=== PATIENT | female | born 1955 | race Caucasian/White ===

== ENCOUNTER → 2023-09-22 14:20 | Outpatient (REF) | payer MEDICARE, OTHER, SELFPAY | LOC: HWRAD 14:20 | PROVIDERS: ATTENDING PHYSICIAN Family Medicine | DX: Z12.31 Encounter for screening mammogram for malignant neoplasm of breast (principal); Z78.0 Asymptomatic menopausal state | CPT/HCPCS: 77063; 77067; 77080 ==

== ENCOUNTER 2024-09-22 13:03 | Emergency (ER) | payer MEDICARE, OTHER, SELFPAY ==
[2024-09-22 13:12] VITALS: BP 120/102
[2024-09-22 13:26] VITALS: BMI 35.6
--- NOTE | 2024-09-22 13:28 | ED.GENMED ---
History of Present Illness
General
Chief Complaint: Heart Rate Problem
Source: patient
Time Seen by Provider: 09/22/24 13:14
History of Present Illness
History of Present Illness:
69-year-old female presents to the emergency room complaining of rapid heart rate. She has a known history of SVT. She felt like her heart was racing this morning so she took an extra dose of her metoprolol. She was not feeling any relief and so
her brought her to the emergency room. She has a mild tightness in her chest. No shortness of breath. Patient states she was diagnosed with SVT about 60 years ago. She has had adenosine many times.
Past History
Past History
ED Past Medical History: Arrthythmia (SVT), Psychiatric (anx/depr) and Other (Colitis)
ED Past Surgical History: Appendectomy and Cardiac (Ablation)
Social History
Tobacco: Non-smoker
Alcohol: None
Drug: None
Personal:
Living: with family
Employment: Employed
Phy Exam
Physical Exam
Physical Exam:
General: Awake, Alert, Oriented X3. No acute distress.
Vitals: Tachycardic
Head: Atraumatic
Eyes: Pupils equal, EOMI
Throat: Airway intact, no exudates
Neck: Trachea midline
Lungs: Clear and equal b/l
Heart: Tachycardic, no murmurs
Abd: Soft, Nontender, No pulsatile mass
Neuro: Nonfocal
Skin: Warm, dry, no rash
Extremities: pulses equal b/l, no edema
Course
Orders/Labs/Results
Orders:
Orders
09/22/24 13:05
EKG [Electrocardiogram (*1)] Urgent
Reason for Study: Tachycardia
EKG- Treatment ONCE
09/22/24 13:23
ECG [Electrocardiogram (*1)] Urgent
Reason for Study: Tachycardia
09/22/24 13:24
EKG- Treatment ONCE
Vital Signs
Initial and Last Documented VS:
Initial Vital Signs
Temp Pulse Resp BP Pulse Ox
98.4 F 200 20 120/102 100
09/22/24 13:12 09/22/24 13:12 09/22/24 13:12 09/22/24 13:12 09/22/24 13:12
Last Documented Vital Signs
Temp Pulse Resp BP Pulse Ox
98.4 F 77 16 124/79 94
09/22/24 13:12 09/22/24 14:00 09/22/24 14:00 09/22/24 14:00 09/22/24 14:00
MDM/Problems Addressed
Differential Diagnosis Includes:
SVT, A-fib with rapid ventricular response
MDM/Problems Addressed:
Patient spontaneously converted to sinus rhythm without medication. She remained in sinus rhythm. Patient has a known diagnosis of SVT. No further evaluation or treatment necessary in the emergency room. Follow with Dr. Abraham garcia as an
outpatient.
*Pulse Oximetry
Patient hypoxic: no
*EKG
Interpreted by ED Provider?: Yes
Interpretation: abnormal
Heart Rate: 186
Rate: tachycardiac
Rhythm: SVT
[place]: normal axis
Interval: normal interval
QRS Pattern: normal QRS
Ischemia: non-specific ST changes
*[place] Interpretation
Rate: tachycardiac
Interpretation: abnormal
Rhythm: SVT
*Critical Care Note
Total Time (30-74mins, 75-104mins- exclusive of procedures): Not Applicable
ED Attending Note
-
Portions of this chart may have been created with voice recognition software.� Occasional wrong word or��sound alike� substitutions may have occurred due to the inherent limitations of voice recognition software.
Discharge Plan
Departure
Patient Disposition: Home (Routine Discharge)
Date of Disposition: 09/22/24
Time of Disposition: 14:20
Patient with high blood pressure during this ER visit?: No
Condition: Good
Discharge Problem:
SVT (supraventricular tachycardia)
Instructions: Supraventricular tachycardia (SVT)
Prescriptions:
No Action
sertraline 50 MG tablet
50 mg PO DAILY
atvphny-nidhkolaivuoq-fxojgsgb 1 TABLET tablet
2 tab PO PRN PRN (Reason: migraine)
loratadine 10 MG tablet
10 mg PO DAILY
potassium chloride 10 MEQ tablet,ER particles/crystals
20 meq PO DAILY
metoprolol tartrate 25 MG tablet
25 mg PO BID
cyanocobalamin (vitamin B-12) 1,000 MCG tablet
1,000 mcg PO DAILY
calcium carbonate 600 MG tablet
500 mg PO DAILY
Rx Instructions:
chewable
pantoprazole 40 MG tablet,delayed release (DR/EC)
20 mg PO BID
cholecalciferol (vitamin D3) [Vitamin D3] 1,000 UNIT capsule
2,000 unit PO DAILY
Multivitamin Women 50 Plus 1 EACH tablet
1 ea PO DAILY
Glucosamine Sulf-Chondroitin 1 EACH capsule
750 cap PO DAILY
ferrous sulfate [iron] 325 mg (65 mg iron) Tablet
325 mg PO DAILY
loperamide [Imodium] 2 mg Capsule
2 mg PO DAILY
Entyvio 300 mg Recon Soln
300 mg IV MONTHLY
Referrals:
Carlos Leong MD [Active] -
Saritha Nieves MD [Family Provider] -
Interventions
Interventions:
*Risk Screen - Suicide Last Done: 09/22/24 13:11
*Neglect/Abuse Screening Last Done: 09/22/24 13:11
ED- Fall Risk Assessment Last Done: 09/22/24 13:11
*ED COVID-19 Vaccine History Last Done: 09/22/24 13:11
*Nursing Disposition Last Done: 09/22/24 14:42
ED- Cardiac Assessment Last Done: 09/22/24 13:20
ED- Pulmonary Assessment Last Done: 09/22/24 13:20
Discharge Date and Time
Discharge Date/Time: 09/22/24 14:43
Print Language: PAKISTANI
[2024-09-22 13:32] VITALS: BP 123/73
[2024-09-22 14:00] VITALS: BP 124/79
== END 2024-09-22 14:43 | disposition home or self-care (01) ==
LOC: EMR 13:03
PROVIDERS: EMERGENCY PHYSICIAN Emergency Medicine; FAMILY PHYSICIAN Family Medicine
DX: I47.10 Supraventricular tachycardia, unspecified (principal); R07.89 Other chest pain; K52.9 Noninfective gastroenteritis and colitis, unspecified; Z91.040 Latex allergy status; Z88.2 Allergy status to sulfonamides; Z88.8 Allergy status to other drugs, medicaments and biological substances; Z91.048 Other nonmedicinal substance allergy status; Z88.5 Allergy status to narcotic agent; Z88.0 Allergy status to penicillin
CPT/HCPCS: 99284; 93005

== ENCOUNTER 2024-10-05 11:53 | Emergency (ER) | payer MEDICARE, OTHER, SELFPAY ==
[2024-10-05 12:05] VITALS: BP 108/75
[2024-10-05 12:14] VITALS: BP 102/84
--- NOTE | 2024-10-05 12:19 | ED.GENMED ---
History of Present Illness
General
Chief Complaint: Heart Rate Problem
Time Seen by Provider: 10/05/24 12:12
History of Present Illness
History of Present Illness:
Patient is a 69-year-old female with a history of SVT who presents to the emergency department in [facility]. She states she has a long history of similar episodes and she was a child. She felt her self going to this around 11 AM. She is currently
suffering with COVID and notes upper respiratory infectious symptoms. Denies chest pain or shortness of breath. Denies fevers
Past History
Past History
ED Past Medical History: Arrthythmia (SVT), Psychiatric (anx/depr) and Other (Colitis)
ED Past Surgical History: Appendectomy and Cardiac (Ablation)
Social History
Tobacco: Non-smoker
Alcohol: None
Drug: None
Personal:
Living: with family
Employment: Employed
Phy Exam
Physical Exam
Physical Exam:
GENERAL APPEARANCE: NAD, well developed/ well nourished
EYES lids/conjunctiva normal
EARS/NOSE/THROAT Mucous membranes moist, uvula midline without oral pharyngeal erythema, exudate or swelling
HEAD/NECK normocephalic atraumatic, neck is supple.
RESPIRATORY respiratory effort normal, speaks in full sentences, no accessory muscle use. Lungs clear to auscultation without rhonchi, wheezes, rales
CARDIAC regular tachycardia
ABDOMINAL Soft, ND/NT.
MUSCLES/EXTREMITIES No abnormal range of motion, no swelling.
SKIN Warm, pink and dry. No rashes
NEUROLOGICAL Speech is clear and appropriate. Normal level of consciousness. 5/5 strength in all extremities.
PSYCH Normal mood and affect. Judgement/competence is appropriate
Course
Orders/Labs/Results
Orders:
Orders
10/05/24
Electrocardiogram (*1) Stat
Comment: DONE EMR
10/05/24 11:54
Electrocardiogram (*1) Urgent
Reason for Study: Chest Pain
EKG- Treatment ONCE
10/05/24 12:18
0.9% Sodium Chloride 1000 ml [Nss] 1,000 ml IV BOLUS
Adenosine [Adenocard] 6 mg IV NOW STA
Pulse Ox/cont/shift [RESP] Stat
Quantity: 1
10/05/24 12:30
Adenosine [Adenocard] 6 mg .ROUTE .STK-MED ONE
10/05/24 12:35
Adenosine [Adenocard] 12 mg .ROUTE .STK-MED ONE
10/05/24 12:46
Basic Metabolic Panel Urgent
Complete Blood Count/With Diff Urgent
Magnesium Urgent
Abnormal Lab Results
10/05/24
12:46
Neutrophils % 40.6 L %
(42.2-75.2)
Monocytes % 12.3 H %
(1.7-9.3)
Carbon Dioxide 16 L mmol/L
(22-30)
Glucose 132 H mg/dl
(70-99)
10/05/24 12:46
10/05/24 12:46
Vital Signs
Initial and Last Documented VS:
Initial Vital Signs
Temp Pulse Resp BP Pulse Ox
98.1 F 184 22 108/75 96
10/05/24 12:05 10/05/24 12:05 10/05/24 12:05 10/05/24 12:05 10/05/24 12:05
Last Documented Vital Signs
Temp Pulse Resp BP Pulse Ox
98.1 F 88 15 114/63 97
10/05/24 12:05 10/05/24 13:45 10/05/24 13:45 10/05/24 13:00 10/05/24 13:45
*Critical Care Note
Total Time (30-74mins, 75-104mins- exclusive of procedures): Not Applicable
comment:
The high probability of a clinically significant, sudden or life threatening deterioration of the cardiovascular system(s) required my full and direct attention, intervention and personal management. The aggregate critical care time was [30]
minutes. This time is in addition to time spent performing reported procedures but includes the following:
[x] Data Review and interpretation
[x] Patient assessment and monitoring of vital signs
[x] Documentation
[x] Medication orders and management
ED Attending Note
ED Attending Note
ED Attending Note:
Patient presents with supraventricular tachycardia. No ischemic symptoms. She is hemodynamically stable. Vagal maneuvers attempted at bedside without success. Will give adenosine and check basic labs
Her patient required 6 mg of adenosine, 12 mg of adenosine, and 12 mg of adenosine. On the third dose she converted to sinus rhythm. Will repeat EKG. Awaiting labs
-
Portions of this chart may have been created with voice recognition software.� Occasional wrong word or��sound alike� substitutions may have occurred due to the inherent limitations of voice recognition software.
Discharge Plan
Departure
Patient Disposition: Home (Routine Discharge)
Date of Disposition: 10/05/24
Time of Disposition: 13:50
Patient with high blood pressure during this ER visit?: No
Discharge Problem:
SVT (supraventricular tachycardia)
Instructions: Supraventricular tachycardia (SVT)
Prescriptions:
No Action
sertraline 50 MG tablet
50 mg PO DAILY
raptqwa-fprcsqprgrnfs-wiyoiocn 1 TABLET tablet
2 tab PO PRN PRN (Reason: migraine)
loratadine 10 MG tablet
10 mg PO DAILY
potassium chloride 10 MEQ tablet,ER particles/crystals
20 meq PO DAILY
metoprolol tartrate 25 MG tablet
25 mg PO BID
cyanocobalamin (vitamin B-12) 1,000 MCG tablet
1,000 mcg PO DAILY
calcium carbonate 600 MG tablet
500 mg PO DAILY
Rx Instructions:
chewable
pantoprazole 40 MG tablet,delayed release (DR/EC)
20 mg PO BID
cholecalciferol (vitamin D3) [Vitamin D3] 1,000 UNIT capsule
2,000 unit PO DAILY
Multivitamin Women 50 Plus 1 EACH tablet
1 ea PO DAILY
Glucosamine Sulf-Chondroitin 1 EACH capsule
750 cap PO DAILY
ferrous sulfate [iron] 325 mg (65 mg iron) Tablet
325 mg PO DAILY
loperamide [Imodium] 2 mg Capsule
2 mg PO DAILY
Entyvio 300 mg Recon Soln
300 mg IV MONTHLY
Referrals:
Saritha Nieves MD [Family Provider] -
Interventions
Interventions:
*Risk Screen - Suicide Last Done: 10/05/24 12:05
*General Assessment Last Done: 10/05/24 12:39
*Neglect/Abuse Screening Last Done: 10/05/24 12:05
ED- Fall Risk Assessment Last Done: 10/05/24 12:39
*ED COVID-19 Vaccine History Last Done: 10/05/24 12:39
*Nursing Disposition Last Done: 10/05/24 14:04
ED- Cardiac Assessment Last Done: 10/05/24 12:39
ED- Pulmonary Assessment Last Done: 10/05/24 12:39
Discharge Date and Time
Discharge Date/Time: 10/05/24 14:04
Print Language: MARSHALLESE
[2024-10-05 12:32] VITALS: BP 115/88
[2024-10-05 12:39] VITALS: BMI 37.4
[2024-10-05] MEDS: ADENOCARD 6 MG IV (12:44)
[2024-10-05] MEDS: NSS 1000 IV (12:44)
[2024-10-05 13:00] VITALS: BP 114/63
[2024-10-05 13:00] LABS: % Basophils 0.8 % (0-2); % Eosinophils 1.3 % (0-6); % Immature Granulocytes 0.2 % (0-0.5); % Lymphocytes 44.8 % (20.5-51.1); % Monocytes 12.3 % (1.7-9.3); % Neutrophils 40.6 % (42.2-75.2); Absolute Eosinophils 0.1 10^3/uL (0-0.7); Absolute Lymphocytes 2.3 10^3/uL (1.2-3.4); Absolute Monocytes 0.6 10^3/uL (0.1-0.6); Absolute Neutrophils 2.1 10^3/uL (1.4-6.5); Hematocrit 41.8 % (37.0-47.0); Hemoglobin 14.1 g/dL (12.0-16.0); Mean Corp Hgb Conc. 33.7 g/dL (33.0-37.0); Mean Corpuscular Hgb 30.1 pg (27.0-31.0); Mean Corpuscular Volume 89.1 fL (81.0-99.0); Mean Platelet Volume 9.6 fL (7.4-10.4); Nucleated Red Blood Cells % 0 %; Platelet Count 204 10^3/uL (130-400); Red Blood Cell Count 4.69 10^6/uL (4.20-5.40); Red Cell Dist. Width 12.8 % (11.5-14.5); White Blood Cell Count 5.2 10^3/uL (4.8-10.8)
[2024-10-05 13:15] LABS: Blood Urea Nitrogen 7 mg/dl (7-17); Carbon Dioxide 16 mmol/L (22-30); Chloride 103 mmol/L (98-107); Estimated Creatinine Clearance 65 ml/min; Glucose 132 mg/dl (70-99); Magnesium 1.6 mg/dl (1.6-2.3); Potassium 4.1 mmol/L (3.5-5.1); Sodium 135 mmol/L (135-145); eGFR > 60.00
== END 2024-10-05 14:04 | disposition home or self-care (01) ==
LOC: EMR 11:53
PROVIDERS: EMERGENCY PHYSICIAN Emergency Medicine; FAMILY PHYSICIAN Family Medicine
DX: I47.10 Supraventricular tachycardia, unspecified (principal)
CPT/HCPCS: 99291; 96374; 96361; 80048; 83735; 85025; 93005; J0153

== ENCOUNTER → 2024-10-29 12:57 | Outpatient (REF) | payer MEDICARE, OTHER, SELFPAY | LOC: PAVMRI 12:57 | PROVIDERS: ATTENDING PHYSICIAN Internal Medicine; FAMILY PHYSICIAN Family Medicine | DX: K50.00 Crohn's disease of small intestine without complications (principal) | CPT/HCPCS: 72197; 74183; A9575 ==

== ENCOUNTER → 2025-05-14 11:22 | Outpatient (REF) | payer MEDICARE, OTHER, SELFPAY | LOC: HWRAD 11:22 | PROVIDERS: ATTENDING PHYSICIAN Family Medicine | DX: R05.1 Acute cough (principal) | CPT/HCPCS: 71046 ==

== ENCOUNTER 2025-06-09 07:58 | Emergency (ER) | payer MEDICARE, OTHER, SELFPAY ==
[2025-06-09 08:11] VITALS: BP 122/82
[2025-06-09 08:17] VITALS: BMI 35.4
[2025-06-09 08:21] VITALS: BP 93/59
--- NOTE | 2025-06-09 08:30 | ED.GENMED ---
History of Present Illness
General
Chief Complaint: Cardiac Symptoms
Source: patient
Exam Limitations: none
Time Seen by Provider: 06/09/25 08:16
Nursing documentation reviewed up to this point in time: agreed with
History of Present Illness
History of Present Illness:
Note:
CHIEF COMPLAINT(S)
Sudden onset of supraventricular tachycardia (SVT).
HISTORY OF PRESENT ILLNESS
The patient is a 69-year-old female with a long history of supraventricular tachycardia, dating back to the age of 10. She presented today with a recurrence of the arrhythmia, which started this morning upon waking. The patient described her
self-management techniques, including Valsalva maneuvers like bearing down, lying flat, and coughing, which she typically performs during episodes. She reported no alcohol intake or identifiable triggers preceding this event. The patient mentioned a
previous ablation procedure performed by her contract officer. During todays episode, she felt her heart beating rapidly but was unable to palpate her pulse accurately. She reported that previous interventions sometimes involve multiple attempts to
restore normal rhythm. The patient�s history notes a prior occasion when three attempts were needed before her heart rhythm reverted. She is familiar with the potential interventions for her condition.
PAST MEDICAL AND SURIGICAL HISTORY
The patient has a history of supraventricular tachycardia and has undergone cardiac ablation.
PHYSICAL EXAM
General: Alert, no acute distress.
Skin: Warm, dry.
Head: Normocephalic, atraumatic.
Neck: Supple, trachea midline.
Eye Ears, nose, mouth and throat: Oral mucosa moist.
Cardiovascular: Normal peripheral perfusion, No edema. tachycardia
Respiratory: Respirations are non-labored.
Gastrointestinal: Abdomen nondistended
Back: Normal range of motion, Normal alignment.
Musculoskeletal: Normal range of motion, normal strength.
Neurological: Alert and oriented to person, place, time, and situation, No focal neurological deficit observed.
Psychiatric: Cooperative, appropriate mood & affect.
PLAN
The plan involves starting treatment with adenosine, beginning with a 6 mg dose, and monitoring her response to the medication. The patients electrolytes will also be reviewed to check for imbalances that might affect her condition.
DIFFERENTIAL DIAGNOSIS
The Differential Diagnosis includes, in no particular order and is not limited to:
1. Supraventricular Tachycardia
2. Atrial Fibrillation
3. Atrial Flutter
4. Sinus Tachycardia
5. Ventricular Tachycardia
6. Premature Atrial Contractions
7. Premature Ventricular Contractions
8. Multifocal Atrial Tachycardia
9. Anxiety or Panic Disorder
10. Electrolyte Imbalance
EKG
My independent EKG interpretation is:
- Time of EK:07 a.m.
- Rhythm: Supraventricular tachycardia
- Heart Rate: 172 bpm
- [place]: Normal
- Abnormalities: ST segment and T wave abnormalities
Disposition:
SUMMARY OF ENCOUNTER
The patient, a 69-year-old female with a history of supraventricular tachycardia (SVT), was seen in the emergency department for a recurrent episode of SVT that began upon waking. Initial treatment involved the administration of intravenous
adenosine, with an initial dose of 6 mg and a subsequent dose administered due to the persistence of the arrhythmia. Post-treatment, she converted to normal sinus rhythm. The patient experienced premature ventricular contractions (PVCs) after
cardioversion with adenosine but remained stable thereafter.
DISPOSITION
Discharge with follow-up instructions for cardiology.
ASSESSMENT
The patient presented with supraventricular tachycardia, which was successfully converted to normal sinus rhythm using IV adenosine.
EMERGENCY TREATMENTS ADMINISTERED
Adenosine was administered intravenously to address the SVT.
PLAN
The patient is to follow up with her contract officer to further assess her condition and discuss potential long-term management strategies for SVT.
PATIENT EDUCATION AND COUNSELING
The patient was provided with return precautions, including instructions on recognizing signs of recurrence or complications that would warrant a return to the emergency department.
FOLLOW-UP INSTRUCTIONS
The patient is instructed to follow up with her contract officer as advised upon discharge.
MEDICATION RECONCILIATION
Adenosine administered during the emergency department visit for SVT cardioversion.
MEDICAL DECISION MAKING
-Complexity of Data Reviewed: Chronic conditions affecting care: History of supraventricular tachycardia. Differential diagnosis includes SVT, atrial fibrillation, atrial flutter, sinus tachycardia, ventricular tachycardia, premature atrial
contractions, premature ventricular contractions, multifocal atrial tachycardia, anxiety/panic disorder, electrolyte imbalance.
-Data:
Category 1
My independent interpretation of EKG indicated supraventricular tachycardia.
Category 3
Considered administering IV adenosine as a management strategy for SVT.
-Risk:
Consideration of Admission/Observation: Escalation of care including admission was considered given the complexity and risk of the patients presenting complaint. Ultimately, discharge was determined to be safe due to the absence of acute
life/organ-threatening processes, stable vitals, and the patients preparedness for outpatient management.
DIAGNOSIS
Supraventricular Tachycardia (ICD-10: I47.1)
Past History
Past History
ED Past Medical History: Arrthythmia (SVT), Psychiatric (anx/depr) and Other (Colitis)
ED Past Surgical History: Appendectomy and Cardiac (Ablation)
Social History
Tobacco: Non-smoker
Alcohol: None
Drug: None
Personal:
Living: with family
Employment: Employed
Phy Exam
Physical Exam
Physical Exam:
.
Course
Orders/Labs/Results
Orders:
Orders
06/09/25
Electrocardiogram (*1) Stat
Reason for Study: Chest Pain
Comment: DONE NO ORDER ENTERED
06/09/25 08:02
EKG [Electrocardiogram (*1)] Urgent
Reason for Study: Chest Pain
EKG- Treatment ONCE
06/09/25 08:19
Adenosine [Adenocard] 6 mg .ROUTE .STK-MED ONE
06/09/25 08:23
Adenosine [Adenocard] 6 mg IV NOW STA
06/09/25 08:25
Adenosine [Adenocard] 12 mg IV NOW STA
06/09/25 08:35
Basic Metabolic Panel Urgent
Complete Blood Count/With Diff Urgent
Free T4 Urgent
TSH Reflex To Free T4 Urgent
06/09/25 08:48
Adenosine [Adenocard] 12 mg .ROUTE .STK-MED ONE
Abnormal Lab Results
06/09/25
08:35
Monocytes % 9.9 H %
(1.7-9.3)
Chloride 110 H mmol/L
(98-107)
Carbon Dioxide 19 L mmol/L
(22-30)
BUN 6 L mg/dl
(7-17)
Glucose 117 H mg/dl
(70-99)
TSH (Reflex) 8.69 H uIU/ml
(0.47-4.68)
06/09/25 08:35
06/09/25 08:35
Vital Signs
Initial and Last Documented VS:
Initial Vital Signs
Temp Pulse Resp BP Pulse Ox
98.4 F 180 18 122/82 99
06/09/25 08:11 06/09/25 08:11 06/09/25 08:11 06/09/25 08:11 06/09/25 08:11
Last Documented Vital Signs
Temp Pulse Resp BP Pulse Ox
98.4 F 69 18 120/65 98
06/09/25 08:11 06/09/25 11:00 06/09/25 11:00 06/09/25 11:00 06/09/25 11:00
*Pulse Oximetry
SaO2: 99
Oxygen Mode of Delivery: Room air
Patient hypoxic: no
*Critical Care Note
Total Time (30-74mins, 75-104mins- exclusive of procedures): Not Applicable
ED Attending Note
-
Portions of this chart may have been created with voice recognition software.� Occasional wrong word or��sound alike� substitutions may have occurred due to the inherent limitations of voice recognition software.
Discharge Plan
Departure
Patient Disposition: Home (Routine Discharge)
Date of Disposition: 06/09/25
Time of Disposition: 11:12
Patient with high blood pressure during this ER visit?: No
Condition: Good
Discharge Problem:
SVT (supraventricular tachycardia)
Instructions: Supraventricular tachycardia (SVT)
Prescriptions:
No Action
sertraline 50 MG tablet
50 mg PO DAILY
otyfciu-jxggbcwbeuojk-qsttytfp 1 TABLET tablet
2 tab PO PRN PRN (Reason: migraine)
loratadine 10 MG tablet
10 mg PO DAILY
potassium chloride 10 MEQ tablet,ER particles/crystals
20 meq PO DAILY
metoprolol tartrate 25 MG tablet
25 mg PO BID
cyanocobalamin (vitamin B-12) 1,000 MCG tablet
1,000 mcg PO DAILY
calcium carbonate 600 MG tablet
500 mg PO DAILY
Rx Instructions:
chewable
pantoprazole 40 MG tablet,delayed release (DR/EC)
20 mg PO BID
cholecalciferol (vitamin D3) [Vitamin D3] 1,000 UNIT capsule
2,000 unit PO DAILY
Multivitamin Women 50 Plus 1 EACH tablet
1 ea PO DAILY
Glucosamine Sulf-Chondroitin 1 EACH capsule
750 cap PO DAILY
ferrous sulfate [iron] 325 mg (65 mg iron) Tablet
325 mg PO DAILY
loperamide [Imodium] 2 mg Capsule
2 mg PO DAILY
Entyvio 300 mg Recon Soln
300 mg IV MONTHLY
Referrals:
Carlos Leong MD [Active, Cardiology] - Call in 1-3 days for appt
UNKNOWN - PT DOES,NOT KNOW [Unknown Provider]
Interventions
Interventions:
*Risk Screen - Suicide Last Done: 06/09/25 08:11
*General Assessment Last Done: 06/09/25 08:11
*Neglect/Abuse Screening Last Done: 06/09/25 08:11
*ED- Fall Risk Assessment Last Done: 06/09/25 08:17
*ED COVID-19 Vaccine History Last Done: 06/09/25 08:11
*ED Influenza Vaccine History Last Done: 06/09/25 08:11
*Nursing Disposition Last Done: 06/09/25 11:18
ED- Pulmonary Assessment Last Done: 06/09/25 08:17
ED- Cardiac Assessment Last Done: 06/09/25 08:17
Discharge Date and Time
Discharge Date/Time: 06/09/25 11:16
Print Language: HUNG[place]
[2025-06-09] MEDS: ADENOCARD 6 MG IV (08:33)
[2025-06-09] MEDS: ADENOCARD 12 MG IV (08:34)
[2025-06-09 08:47] LABS: Hematocrit 42.1 % (37.0-47.0); Hemoglobin 14.2 g/dL (12.0-16.0); Mean Corp Hgb Conc. 33.7 g/dL (33.0-37.0); Mean Corpuscular Volume 89.4 fL (81.0-99.0); Nucleated Red Blood Cells % 0 %; Platelet Count 207 10^3/uL (130-400); Red Cell Dist. Width 12.5 % (11.5-14.5)
[2025-06-09 08:58] LABS: Blood Urea Nitrogen 6 mg/dl (7-17); Calcium 8.8 mg/dl (8.4-10.2); Carbon Dioxide 19 mmol/L (22-30); Chloride 110 mmol/L (98-107); Estimated Creatinine Clearance 64 ml/min; Glucose 117 mg/dl (70-99); Potassium 4.1 mmol/L (3.5-5.1); Sodium 140 mmol/L (135-145); eGFR > 60.00
[2025-06-09 09:00] VITALS: BP 100/56
[2025-06-09 10:00] VITALS: BP 107/58
[2025-06-09 11:00] VITALS: BP 120/65
== END 2025-06-09 11:16 | disposition home or self-care (01) ==
LOC: EMR 07:58
PROVIDERS: EMERGENCY PHYSICIAN Emergency Medicine; FAMILY PHYSICIAN Family Medicine
DX: I47.10 Supraventricular tachycardia, unspecified (principal); F41.9 Anxiety disorder, unspecified; F32.A Depression, unspecified; K52.9 Noninfective gastroenteritis and colitis, unspecified; E78.5 Hyperlipidemia, unspecified; Z91.040 Latex allergy status; Z88.5 Allergy status to narcotic agent; Z88.0 Allergy status to penicillin; Z88.2 Allergy status to sulfonamides; Z88.8 Allergy status to other drugs, medicaments and biological substances; Z91.048 Other nonmedicinal substance allergy status
CPT/HCPCS: 99284; 96374; 80048; 84439; 84443; 85025; 93005; J0153